=== PATIENT | male | born 1970 | race Caucasian/White ===

== ENCOUNTER → 2016-11-15 | Outpatient (CLI) | payer BC | LOC: OD 11:19 | PROVIDERS: ATTEND Physician Assistant | DX: M54.5 Low back pain (principal) | CPT/HCPCS: 74000 ==

== ENCOUNTER → 2016-12-06 | Outpatient (CLI) | payer BC | LOC: OD 09:33 | PROVIDERS: ATTEND Physician Assistant | DX: M54.5 Low back pain (principal) | CPT/HCPCS: 72110 ==

== ENCOUNTER → 2017-04-11 | Outpatient (CLI) | payer BC ==
[2017-04-11 14:12] LABS: ABSOLUTE EOSINOPHILS # (AUTO) 0.2 10^3/uL (0.0-0.6); ABSOLUTE LYMPHOCYTES (AUTO) 1.8 10^3/uL (0.5-4.7); ABSOLUTE MONOCYTES (AUTO) 0.5 10^3/uL (0.1-1.4); ABSOLUTE NEUT (AUTO) 4.3 10^3/uL (1.7-8.2); BASOPHILS % (AUTO) 0.6 % (0-2); EOSINOPHILS % (AUTO) 2.5 % (0-6); HEMATOCRIT 41.4 % (37.9-51.0); HEMOGLOBIN 14.9 g/dL (13.5-17.0); HGB HCT DIFFERENCE 3.3; LYMPHOCYTES % (AUTO) 26.6 % (13-45); MEAN CORPUSCULAR HEMOGLOBIN 33.9 pg (27.0-33.4); MEAN CORPUSCULAR HGB CONC 36.1 g/dL (32.0-36.0); MEAN CORPUSCULAR VOLUME 94 fl (80-97); MONOCYTES % (AUTO) 7.9 % (3-13); RED BLOOD COUNT 4.41 10^6/uL (4.35-5.55); RED CELL DISTRIBUTION WIDTH 13.7 % (11.5-14.0); SEGMENTED NEUTROPHILS % (AUTO) 62.4 % (42-78); WHITE BLOOD COUNT 6.8 10^3/uL (4.0-10.5)
[2017-04-11 14:37] LABS: ALANINE AMINOTRANSFERASE 44 U/L (21-72); ALBUMIN 4.8 g/dL (3.5-5.0); ALKALINE PHOSPHATASE 88 U/L (38-126); ANION GAP 11 (5-19); ASPARTATE AMINO TRANSFERASE 27 U/L (17-59); BILIRUBIN,DIRECT 0.4 mg/dL (0.0-0.4); BILIRUBIN,TOTAL 0.5 mg/dL (0.2-1.3); BLOOD UREA NITROGEN 17 mg/dL (7-20); CARBON DIOXIDE 27 mmol/L (22-30); CHLORIDE 101 mmol/L (98-107); CREATINE KINASE 104 U/L (55-170); CREATININE RESULT 1.33 mg/dL (0.52-1.25); GLUCOSE 89 mg/dL (75-110); POTASSIUM 4.2 mmol/L (3.6-5.0); SODIUM 139.4 mmol/L (137-145); TOTAL PROTEIN 7.1 g/dL (6.3-8.2)
[2017-04-11 14:48] LABS: CREATINE KINASE MB 0.95 ng/mL (<4.55)
[2017-04-11 14:49] LABS: DIRECT LDL 121 mg/dL (<100)
[2017-04-11 15:17] LABS: TROPONIN I < 0.012 ng/mL
== END ==
LOC: OD 12:41
PROVIDERS: ATTEND Physician Assistant
DX: R07.89 Other chest pain (principal); R42 Dizziness and giddiness
CPT/HCPCS: 36415; 80053; 82550; 82553; 83036; 83721; 84443; 84484; 85025

== ENCOUNTER → 2017-04-19 | Outpatient (CLI) | payer BC, OTHER ==
--- NOTE | 2017-04-19 16:29 | RADIOLOGY REPORT (SQ) ---
EXAM DESCRIPTION: CAROTID DOPPLER COMPLETED DATE/TIME: 04/19/2017 4:07 pm REASON FOR STUDY: DIZZINESS R42 DIZZINESS AND GIDDINESS COMPARISON: CT soft tissue neck with contrast 07/22/2009 TECHNIQUE: Grayscale ultrasound, Doppler velocity and spectra, and color Doppler images acquired of the extra-cranial carotid and vertebral arteries. Images stored on PACS. LIMITATIONS: None. FINDINGS: RIGHT CAROTID CCA Velocities: Within normal limits. ICA Velocities Peak systolic 0.8 m/s. End diastolic 0.21 m/s. Proximal ICA/CCA peak systolic ratio 0.9. Spectra normal. No significant plaque. LEFT CAROTID CCA Velocities: Within normal limits. ICA Velocities Peak systolic 1.0 m/s. End diastolic 0.36 m/s. Proximal ICA/CCA peak systolic ratio 1.0. Spectra normal. No significant plaque. VERTEBRAL ARTERIES: Antegrade flow. Normal waveforms. SUBCLAVIAN ARTERIES: Not evaluated OTHER: No other significant finding. IMPRESSION: NO HEMODYNAMICALLY SIGNIFICANT STENOSIS. COMMENT: Quality ID #[id number]: Velocity criteria are extrapolated from the diameter data as defined by t he Society of Radiologists in Ultrasound Consensus Conference. Radiology 2003: 229; 340-346. TECHNICAL DOCUMENTATION: JOB ID: [id number] [employer]- All Rights Reserved
== END ==
LOC: SP 14:53
PROVIDERS: ATTEND Physician Assistant
DX: R42 Dizziness and giddiness (principal)
CPT/HCPCS: 93880

== ENCOUNTER 2018-03-21 08:09 | Emergency (ER) | payer BC, OTHER ==
[2018-03-21] MEDS ORDERED: MECLIZINE HCL 25 MG TABLET PO ONE (09:23)
[2018-03-21] MEDS ORDERED: DIAZEPAM 5 MG TABLET PO ONE (09:23)
--- NOTE | 2018-03-21 09:30 | ER Document Report ---
ED General - General Mode of Arrival: Ambulatory Information source: Patient TRAVEL OUTSIDE OF THE [place] IN LAST 30 DAYS: No <AME JONES - Last Filed: 03/21/18 09:25> <STEVE NICK - Last Filed: 03/21/18 12:08> - General Chief Complaint: Dizziness Stated Complaint: DIZZINESS Time Seen by Provider: 03/21/18 09:12 Notes: Patient is a 47 year old male with HTN and a history of chronic low back pain presents to the emergency department complaining of dizziness onset 4 days ago worsening this morning. Patient states he would become dizzy in the morning when getting out of bed but since his onset, he felt like his dizziness was resolving. However, this morning he states his dizziness is more severe and exacerbated with any movement. He states he had similar symptoms a year ago although todays symptoms are more severe. Patient states his PCP prescribed Meclizine which he took this morning at 0400 and again at 0745 with no relief. (AME JONES) - Related Data Allergies/Adverse Reactions: No Known Allergies Allergy (Verified 03/21/18 08:10) Past Medical History - General Information source: Patient - Social History Smoking Status: Current Every Day Smoker Chew tobacco use (# tins/day): No Drug Abuse: None Family History: Reviewed & Not Pertinent Patient has suicidal ideation: No Patient has homicidal ideation: No - Past Medical History Cardiac Medical History: Reports: Hx Hypertension GI Medical History: Reports: Hx Gastroesophageal Reflux Disease - Immunizations Hx Diphtheria, Pertussis, Tetanus Vaccination: Yes <AME JONES - Last Filed: 03/21/18 09:25> Review of Systems - Review of Systems Constitutional: No symptoms reported EENT: See HPI, Vertigo Cardiovascular: See HPI, Dizziness Respiratory: No symptoms reported Gastrointestinal: No symptoms reported Genitourinary: No symptoms reported Male Genitourinary: No symptoms reported Musculoskeletal: No symptoms reported Skin: No symptoms reported Hematologic/Lymphatic: No symptoms reported Neurological/Psychological: No symptoms reported -: Yes All other systems reviewed and negative <AME JONES - Last Filed: 03/21/18 09:25> Physical Exam <AME JONES - Last Filed: 03/21/18 09:25> <STEVE NICK - Last Filed: 03/21/18 12:08> - Vital signs Vitals: Temp Pulse Resp BP Pulse Ox 97.8 F 72 20 144/92 H 99 03/21/18 08:14 03/21/18 08:14 03/21/18 08:14 03/21/18 08:14 03/21/18 08:14 - Notes Notes: GENERAL: Alert, interacts well. No acute distress. HEAD: Normocephalic, atraumatic. EYES: Pupils equal, round, and reactive to light. Extraocular movements intact. Minimal lateral gaze nystagmus when making the patient move his head around rapidly, this made the patient very dizzy. ENT: Oral mucosa moist, tongue midline. NECK: Full range of motion. Supple. Trachea midline. No bruits. LUNGS: Clear to auscultation bilaterally, no wheezes, rales, or rhonchi. No respiratory distress. HEART: Regular rate and rhythm. No murmurs, gallops, or rubs. ABDOMEN: Soft, non-tender. Non-distended. Bowel sounds present in all 4 quadrants. EXTREMITIES: Moves all 4 extremities spontaneously. NEUROLOGICAL: Alert and oriented x3. Normal speech. PSYCH: Normal affect, normal mood. SKIN: Warm, dry, normal turgor. No rashes or lesions noted. Meclizine (AME JONES) Course <AME JONES - Last Filed: 03/21/18 09:25> - Consults Dr. Duff Time consulted: 12:00 Consulted provider: follow-up in office - Have patient check in at 1 PM, and they will work him into the schedule today. <STEVE NICK - Last Filed: 03/21/18 12:08> - Re-evaluation Re-evalutation: 03/21/18 12:04 At this time the patient has had 50 mg Antivert and 5 mg Valium. He states that he really cannot tell an improvement in the symptoms that he feels when he gets up and down and looks around. He is quite frustrated with lack of improvement. I told him I would try to get him into see an ear nose and throat doctor, I discussed his case with Dr. Duff who will work him into the schedule this afternoon. (STEVE NICK) - Vital Signs Vital signs: Temp Pulse Resp BP Pulse Ox 97.8 F 72 20 144/92 H 99 03/21/18 08:14 03/21/18 08:14 03/21/18 08:14 03/21/18 08:14 03/21/18 08:14 Discharge <AME JONES - Last Filed: 03/21/18 09:25> <STEVE NICK - Last Filed: 03/21/18 12:08> - Discharge Clinical Impression: Vertigo Condition: Stable Disposition: HOME, SELF-CARE Additional Instructions: Follow-up with Dr. Duff at [facility] today at 1 PM. Referrals: [facility] [Provider Group] - 03/21/18 1:00 pm ALONA DUFF DO [ASSOCIATE] - 03/21/18 1:00 pm Scribe Attestation: 03/21/18 09:51 I personally performed the services described in the documentation, reviewed and edited the documentation which was dictated to the scribe in my presence, and it accurately records my words and actions. (STEVE NICK) Scribe Documentation - Scribe Written by Reyna:: Reyna Delatorre, 03/21/2018 09:33 acting as scribe for :: Shari <AME JONES - Last Filed: 03/21/18 09:25>
[2018-03-21] MEDS ORDERED: DIAZEPAM 5 MG TABLET ONE (09:40)
[2018-03-21] MEDS ORDERED: MECLIZINE HCL 25 MG TABLET ONE (09:42)
[2018-03-21 12:49] VITALS: BP 129/84
== END 2018-03-21 12:44 | disposition home or self-care (01) ==
LOC: ER 08:09
DX: R42 Dizziness and giddiness (principal); H55.00 Unspecified nystagmus; I10 Essential (primary) hypertension; F17.200 Nicotine dependence, unspecified, uncomplicated
CPT/HCPCS: 99283

== ENCOUNTER → 2018-03-29 | Outpatient (CLI) | payer BC ==
--- NOTE | 2018-03-29 10:46 | RADIOLOGY REPORT (SQ) ---
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 TECHNIQUE: Multiplanar imaging includes noncontrasted T1, T2, FLAIR, diffusion with ADC map and post gadolinium contrast T1 sequences. Images stored on PACS. Additional thin section axial T2 weighted images and axial and coronal T1 pre and post contrasted jayson ges through the cerebellopontine angles and internal auditory canals/inner ear structures. CONTRAST TYPE AND DOSE: 15 mL Dotarem. RENAL FUNCTION: GFR > 60. LIMITATIONS: None. FINDINGS: ANATOMY: No anomalies. Normal vascular flow voids. Pituitary fossa normal. CSF SPACES: Normal in size and contour. No hemorrhage. CEREBRUM: Sulci and gyri normal in size and contour. Normal white matter signal on FLAIR imaging. No evidence of hemorrhage, mass, or extraaxial fluid collection. No abnormal enhancement post contrast. POSTERIOR FOSSA: No signal alteration. No hemorrhage. No edema, masses, or mass effect. Internal auditory canals, cerebellopontine angles, mastoids normal. No abnormal enhancement post con trast. DIFFUSION IMAGING: Negative for acute or subacute infarction. ORBITS: No masses. Globes normal. PARANASAL SINUSES: No fluid levels. Mucosa normal. OTHER: No other significant finding. IMPRESSION: NORMAL MRI OF THE BRAIN WITHOUT AND WITH INTRAVENOUS GADOLINIUM CONTRAST. EVIDENCE OF ACUTE STROKE: NO. TECHNICAL DOCUMENTATION: JOB ID: [id number] [employer]- All Rights Reserved Reading location - IP/workstation name: [facility]
== END ==
LOC: RAD 08:45
PROVIDERS: ATTEND Otolaryngology
DX: R26.89 Other abnormalities of gait and mobility (principal); H69.83 Other specified disorders of Eustachian tube, bilateral; H93.13 Tinnitus, bilateral
CPT/HCPCS: 82565; 70553; A9576

== ENCOUNTER 2020-08-01 06:22 | Emergency (ER) | payer SELFPAY ==
[2020-08-01 06:50] VITALS: BP 163/110
--- NOTE | 2020-08-01 09:46 | EKG REPORT ---
SEVERITY:- NORMAL ECG - SINUS RHYTHM : Confirmed by: Sergio Quiles MD 01-Aug-2020 09:45:42
== END 2020-08-01 07:45 | disposition left against medical advice (07) ==
LOC: ER 06:22
DX: Z53.21 Procedure and treatment not carried out due to patient leaving prior to being seen by health care provider (principal); R07.9 Chest pain, unspecified; R20.0 Anesthesia of skin
CPT/HCPCS: 93005; 93010